=== PATIENT | male | born 1950 | race Caucasian/White ===

== ENCOUNTER 2019-04-12 18:36 | Inpatient (IN) | payer OTHER ==
[~2019-04-12] VITALS: Ht 165.1 cm; Wt 80.0 kg
[2019-04-12 18:39] VITALS: Ht 165.1 cm; Wt 80.0 kg
--- NOTE | 2019-04-12 19:01 | NUR ---
PT COMING FROM [facility] FOR [facility] THAT STARTED AT 1500 PT HAD A MECHANICAL FALL ON THE YARD AND THE MEDICAL TEAM WAS CALLED OUT TO SEE HIM. PER MEDICS THE STAFF REPORTING BP OF 74 SYSTOLIC AND 911 WAS ACTIVATED. PER MEDICS THEY STARTED 20G RIGHT AC AND GAVE PT 300ML BOLUS NS AND SYSTOLIC IS 110 AT TIME OF ARRIVAL. PT IS ALERT AND ORIENTED AND BREATHING IS UNLABORED AND EVEN. PT HAS NO COMPLAINT AT THIS TIME AND AWAITING MSE. 2 OFFICERS AT BEDSIDE AND PT IN POC, ON FULL CM AND AWITING MSE
--- NOTE | 2019-04-12 19:10 | NUR ---
DR HOANG AT BEDSIDE FOR MSE AND REPORT GIVEN TO LAURA TO CONTINUE PT CARE.
[2019-04-12 19:45] LABS: PLATELET COUNT 189 x10^3mcL (130-400)
[2019-04-12 19:47] LABS: microscopic required? YES; urine erythrocyte NEGATIVE (NEGATIVE)
[2019-04-12 19:56] LABS: CALCIUM 7.4 mg/dL (8.5-10.1); CARBON DIOXIDE 27.3 mmol/L (21-32); CHLORIDE SERUM 102 mmol/L (98-107); CREATININE SERUM 1.1 mg/dL (0.7-1.3); GFR1 > 60 mL/min; GLUCOSE SERUM 73 mg/dL (74-106); POTASSIUM SERUM 4.5 mmol/L (3.5-5.1); RED CELL DISTRIBUTION WIDTH 15.8 % (11.5-14.5); SODIUM SERUM 134 mmol/L (136-145)
--- NOTE | 2019-04-12 19:58 | NUR ---
PT RESTING IN A POSITION OF COMFORT, AOX4, RESP EVEN AND UNLABORED, NO ACUTE DISTRESS NOTED. PT REMIANS ON FULL CM.
[2019-04-12 20:01] LABS: ALBUMIN 2.3 g/dL (3.4-5.0); ALKALINE PHOSPHATASE 56 U/L (46-116); ALT/SGPT 22 U/L (16-63); AST/SGOT 15 U/L (15-37); BILIRUBIN TOTAL 0.6 mg/dL (0.20-1.00); TOTAL PROTEIN, SERUM 5.2 g/dL (6.4-8.2)
[2019-04-12 20:09] LABS: BAND NEUTROPHIL 9 % (0-10); BASOPHIL 0 % (0-2); MONOCYTE 1 % (0-7); SEGMENTED NEUTROPHILS 89 % (37-75)
[2019-04-12 20:11] LABS: PLATELET MORPHOLOGY PLATELETS NORMAL; rbc morphology (normal/abnorm) NORMAL (NORMAL)
[2019-04-12] MEDS ORDERED: CARVEDILOL6.25 M1 PO (20:25)
[2019-04-12] MEDS ORDERED: AMLODIPINE BESY10 M2 PO (20:25)
[2019-04-12] MEDS ORDERED: ATORVASTATIN CA40 M1 PO (20:25)
[2019-04-12] MEDS ORDERED: DEXAMETHASONE4 MG PO (20:26)
[2019-04-12] MEDS ORDERED: COLACE100 MG PO (20:26)
[2019-04-12] MEDS ORDERED: XOPENEX1.25 MG/3 (20:27)
[2019-04-12] MEDS ORDERED: LANTUS SOLOS100 U/M1 (20:27)
[2019-04-12] MEDS ORDERED: LISINOPRIL40 MG PO (20:27)
[2019-04-12] MEDS ORDERED: DULERA1 AR3 (20:28)
[2019-04-12] MEDS ORDERED: TAMSULOSIN HCL0.4 MG PO (20:28)
[2019-04-12] MEDS ORDERED: GOOD SENSE OMEP20 MG PO (20:28)
[2019-04-12] MEDS ORDERED: SPIRIVA18 MC1 INH (20:28)
--- NOTE | 2019-04-12 20:49 | NUR ---
PT REPORT CALLED TO NATY CHRISTIANSON TO ASSUME PT CARE.
--- NOTE | 2019-04-12 21:00 | NUR ---
RECEIVED PT FROM ED VIA ALIZA, CAME IN DUE TO FALL. AAOX4. DENIES HEADACHE/DIZZINESS. ABLE TO FOLLOW COMMANDS. SPEECH IS CLEAR. HAND MANAGER EQUITY EQUAL. NO FACIAL DROOP/ARM DRIFT. NO SOB NOTED, LUNG SOUNDS CTA. O2 SAT=98% ON RA. DENIES CHEST PAIN/PRESSURE, SR-ST ON THE MONITOR. DENIES ABDOMINAL DISCOMFORT. BOWEL SOUNDS ACTIVE. ABDOMEN IS SOFT. C/O BURNING SENSATION ON URINATION. W/ ECCHYMOSIS ON BUE AND ABDOMEN, LINEAR SCAB ON THE LOWER MID-ABDOMEN, AND SCABS BEHIND THE LEFT EAR. AMBULATORY W/ STEADY GAIT. ABLE TO MOVE ALL EXTREMITIES. MILD COLD SPRINGS. WEARS EYEGLASSES. IV SITE PATENT AND INTACT. RECEIVED PT FROM ED W/ VAIBHAV ONGOING. SIDE RAILS UPX2. CALL LIGHT ON REACH. PRIMARY NURSE NATY AT BEDSIDE FOR CONTINUITY OF CARE
[2019-04-12 21:32] VITALS: BP 124/62
--- NOTE | 2019-04-12 22:07 | NUR ---
FLU VACCINE ADMINISTERED TO LEFT DELTOID. TOLERATED WELL. WATCHING TV AT THIS TIME. HOB LLEVATED 30 DEG. CALL LIGHT WITHIN EASY REACH. CORRECTIONAL OFFICERS IN ROOM.
[2019-04-12 23:26] VITALS: BP 124/62
--- NOTE | 2019-04-12 23:41 | NUR ---
IV SITE TO RIGHT HAND FLUSHED WELL. STARTED ORDERED IVF OF NS AT 100ML/HR. NS BAG WILL NOT SCAN. STARTED ORDERED ANTIBIOTIC ZOSYN. PT DENIES HAVING ANY ALLERGY TO PENICILLIN.
--- NOTE | 2019-04-13 01:51 | NUR ---
EYES CLOSED, EASILY AWAKENED. BREATHING EVEN AND UNLABORED ON ROOM AIR. IVF INFUSING WELL. CALL LIGHT WITHIN EASY REACH. CORRECTIONAL OFFICERS IN ROOM
[2019-04-13 05:21] VITALS: BP 115/51
--- NOTE | 2019-04-13 05:36 | NUR ---
O2 SAT 85% ON ROOM AIR. PLACED NASAL CANNULA 3LPM OF O2, O2 SAT 95%
--- NOTE | 2019-04-13 06:32 | NUR ---
AWAKE AND ALERT, ON 3LPM OF O2 VIA NC. BREATHING EVEN AND UNLABORED. IVF OF NS INFUSING WELL TO RIGHT HAND AT 100ML/HR. CALL LIGHT WITHIN EASY REACH. CORRECTIONAL OFFICERS IN ROOM.
[2019-04-13 07:02] LABS: CARBON DIOXIDE 28.1 mmol/L (21-32); CHLORIDE SERUM 106 mmol/L (98-107); CREATININE SERUM 1.1 mg/dL (0.7-1.3); GFR1 > 60 mL/min; GLUCOSE SERUM 92 mg/dL (74-106); POTASSIUM SERUM 4.5 mmol/L (3.5-5.1); SODIUM SERUM 139 mmol/L (136-145)
[2019-04-13 07:03] LABS: PLATELET COUNT 168 x10^3mcL (130-400)
--- NOTE | 2019-04-13 07:12 | NUR ---
EYES CLOSED, BREATHING UNLABORED ON 3LPM OF O2 VIA NC. CALL LIGHT WITHIN EASY REACH. IV SITE FREE FROM ERYTHEMA OR SWELLING. IVF INFUSING WELL. ENDORSED TO NURSE BELEM
--- NOTE | 2019-04-13 07:52 | NUR ---
NO SOB OR DISTRESS NOTED. BREATH SOUNDS ARE CLEAR TO DIM BILATERALLY. NO MED NEB NEEDED AT THIS TIME.
[2019-04-13 08:33] VITALS: BP 95/45
--- NOTE | 2019-04-13 09:45 | NUR ---
AM DUE MEDICATIONS GIVEN. PATIENT TOLERATED WELL.
[2019-04-13 12:07] LABS: BAND NEUTROPHIL 8 % (0-10); BASOPHIL 0 % (0-2)
[2019-04-13 12:08] LABS: MONOCYTE 1 % (0-7); SEGMENTED NEUTROPHILS 90 % (37-75)
[2019-04-13 12:09] LABS: PLATELET MORPHOLOGY PLATELETS NORMAL; rbc morphology (normal/abnorm) ABNORMAL (NORMAL)
[2019-04-13 12:53] VITALS: BP 109/56
[2019-04-13 16:32] VITALS: BP 109/58
--- NOTE | 2019-04-13 18:42 | NUR ---
PATIENT REPORTS MILD HEADACHE REQUESTING FOR TYLENOL, GIVEN. ALSO INQUIRING ABOUT BREATHING TREATMENT, INFORMED HIM NEXT TIME TO ADMINISTER BY RT IS AT 2100, DENIES FEELING RESP DISCOMFORT AND OKAY TO WAIT FOR NEXT DOSE TIME. ALSO REQUESTING FOR ARTIFICIAL TEARS FOR DRY EYES. DR DENNY CALLED AND MADE AWARE, TELEPHONE ORDER RECEIVED AND PLACED. NO OTHER CONCERNS AT THIS TIME. NO SIGNFICANT CHANGE IN CONDITION. CALL LIGHT WITHIN REACH. 2 OFFICERS AT BEDSIDE. WILL CONT TO MONITOR AND ENDORSE TO NOC NURSE.
--- NOTE | 2019-04-13 19:57 | NUR ---
PT RECEIVED FROM DAY NURSE. PT RESTING IN BED AT THIS TIME. A/O X4, CALM AND COOPERATIVE AT THIS TIME. TELE 9, SR. DENIES CP, NV, DIZZINESS, AND PALPATATIONS. PALPABLE PULSES, NO EDEMA NOTED AT THIS TIME. BREATHING E/U ON 1L NC AT THIS TIME. DENIES SOB. ABD SOFT AND ROUND, DENIES PAIN TO PALPATION. AMBULATORY AT BASELINE. HEALING SURGICAL SITE NOTED BEHIND L EAR. MISCELLANEOUS MACHINE OPERATOR. ECCYMOSIS NOTED BUE/ABD. RH IV, CDI AND INFUSING. BED AT LOWEST POSITION. CALL LIGHT WITHIN REACH. WILL CONTINUE TO MONITOR.
[2019-04-13 20:33] VITALS: BP 111/59
[2019-04-13 20:53] VITALS: BP 116/71
--- NOTE | 2019-04-14 00:14 | NUR ---
PT RESTING IN BED AT THIS TIME. NO S/S OF PAIN OR DISCOMFORT NOTED AT THIS TIME. BREATHING E/U ON 1L NC. NO SIGNS OF ACUTE DISTRESS AT THIS TIME. WILL CONTINUE TO MONITOR.
[2019-04-14 05:23] VITALS: BP 144/71
[2019-04-14 06:35] LABS: CALCIUM 7.8 mg/dL (8.5-10.1); CARBON DIOXIDE 27.8 mmol/L (21-32); CHLORIDE SERUM 109 mmol/L (98-107); CREATININE SERUM 0.8 mg/dL (0.7-1.3); GFR1 > 60 mL/min; GLUCOSE SERUM 132 mg/dL (74-106); POTASSIUM SERUM 4.7 mmol/L (3.5-5.1); SODIUM SERUM 142 mmol/L (136-145)
[2019-04-14 06:38] LABS: PLATELET COUNT 134 x10^3mcL (130-400)
--- NOTE | 2019-04-14 06:45 | NUR ---
PT RESTING IN BED AT THIS TIME. DENIES PAIN AND DISCOMFORT. BREATHING E/U ON 1L NC. NO SIGNS OF ACUTE DISTRESS NOTED. IV TO RH CDI. WILL ENDORSE TO DAY NURSE.
[2019-04-14 07:04] LABS: BASOPHIL % 0 % (0-2); RED CELL DISTRIBUTION WIDTH 15.8 % (11.5-14.5)
--- NOTE | 2019-04-14 07:29 | NUR ---
REPORT RECEIVED FROM CRANIOLOGIST RN. NO SIGNS OF DISTRESS NOTED. WILL CONTINUE TO MONITOR. CALL LIGHT WITHIN REACH.
[2019-04-14 08:22] VITALS: BP 128/69
--- NOTE | 2019-04-14 08:47 | NUR ---
Offered to put SCDs on patient's legs. Patient refused.
--- NOTE | 2019-04-14 11:16 | NUR ---
FAMILY MEDICINE TEAM MADE ROUNDS TO SEE PATIENT. CONTINUE TO MONITOR. PATIENT INFORMED.
[2019-04-14 12:08] VITALS: BP 125/61
--- NOTE | 2019-04-14 13:51 | NUR ---
PATIENT RESTING IN BED. NO SIGNS OF DISTRESS NOTED. TWO DEPUTIES PRESENT AND ON STANDBY. PATIENT HAS NOT C/O PAIN. WILL CONTINUE TO MONITOR. CALL LIGHT WITHIN REACH.
--- NOTE | 2019-04-14 14:51 | NUR ---
REMOVED RIGHT WRIST 22G IV DUE TO INFILTRATION. STARTED NEW IV 22G ON LEFT POSTERIOR FOREARM. NO SIGNS/SYMPTOMS OF INFILTRATION NOTED.
--- NOTE | 2019-04-14 15:01 | NUR ---
PATIENT C/O DRY EYES. DR. EDUIN FLOWERS AND JOSE ANTONIO FABIAN ORDER FOR ARTIFICIAL TEARS FOR BOTH EYES THREE TIMES PER DAY ORDERED. PATIENT MADE AWARE.
[2019-04-14 16:57] VITALS: BP 139/60
--- NOTE | 2019-04-14 18:19 | NUR ---
PATIENT RESTING IN BED AND EATING DINNER. BED LINEN CHANGED WITH FOOTWEAR FACTORY WORKER. PATIENT HAD NO SIGNS OF DISTRESS. LEFT FOOT SHACKLED TO BED. WILL ENDORSE TO SUPERVISOR [employer] RN. CALL LIGHT WITHIN REACH.
--- NOTE | 2019-04-14 20:00 | NUR ---
SHIFT REASSESSMENT DONE.PATIENT ALERT AND ORIENTED.CIM,2 SECURITY OFFICERS AT BEDSIDE FOR SAFETY.O2 AT 1 LITER N/C.NS AT 100 CC/ HOUR R WRIST /HAND.ON ATB SCHEDULE.TELE 9 SR.WANTING HIS EYEDROPS/ARTIFICIAL TEARS.WILL GIVE.WILTON PER REPORT.NEEDS ANTICIPATED.URINAL AT BEDSIDE,VOIDING WELL.EMPTY NEEDED.CALL LIGHT IN REACH.
[2019-04-14 20:27] VITALS: BP 118/70
--- NOTE | 2019-04-14 21:35 | NUR ---
ALL PM MEDS GIVEN.SWALLOWS WELL.EYEDROPS GIVEN BOTH EYES DRYNESS.IVF NS AT 100 CC/HOUR.
--- NOTE | 2019-04-15 01:15 | NUR ---
PATIENT ATB KULWINDER GOT MANUALLY DC AFTER [address] DENNY.NW ATB ORDERED FORTAZ.THROAT CULTURE RESULT MODERATE YEAST.WILL CHECK WITH PHARMACY IF MED AVAILABLE.
--- NOTE | 2019-04-15 03:00 | NUR ---
CORRECTION:DR THEODORE ORDERED FORTAZ AND DECADRON PO.
[2019-04-15 05:05] VITALS: BP 147/78
--- NOTE | 2019-04-15 06:07 | NUR ---
I AND O MEASURED.ATB GIVEN.AM MED GIVEN,SWALLOWS WELL.WILL ENDORSE TO NEXT SHIFT.
[2019-04-15 06:37] LABS: PLATELET COUNT 139 x10^3mcL (130-400)
[2019-04-15 06:43] LABS: CALCIUM 7.9 mg/dL (8.5-10.1); CHLORIDE SERUM 107 mmol/L (98-107); CREATININE SERUM 0.8 mg/dL (0.7-1.3); GFR1 > 60 mL/min; GLUCOSE SERUM 99 mg/dL (74-106); POTASSIUM SERUM 4.5 mmol/L (3.5-5.1); SODIUM SERUM 140 mmol/L (136-145)
[2019-04-15 07:00] LABS: BASOPHIL % 0 % (0-2); RED CELL DISTRIBUTION WIDTH 15.4 % (11.5-14.5)
--- NOTE | 2019-04-15 07:05 | NUR ---
SEEN IN BED AAOX3. DENIES HEADACHE OR DIZZINESS. STATED JUST HAVING SORE THROAT. DENIES WEAKNESS. ON REGULAR DIET. IVF NS TO LFA INFUSING AT 100ML/HR. CALL LIGHT PLACED WITHIN EASY REACH. SIDERAILS UP X2. CORRECTIONAL GUARDS AT BEDSIDE.
[2019-04-15 08:44] VITALS: BP 150/65
[2019-04-15 09:49] VITALS: BP 152/65
[2019-04-15 13:09] VITALS: BP 144/68
[2019-04-15 17:01] VITALS: BP 143/51
--- NOTE | 2019-04-15 17:40 | NUR ---
NO ANY DISTRESS THROUGHOUT SHIFT. VSS. DENIES CHEST PAIN. TYLENOL PO GIVEN X1 FOR HEADACHE. CEPACOL GIVEN X2 FOR SORE THROAT. ALL DUE MEDS GIVEN. TOLERATED TO REGULAR DIET WELL. IVF NS TO LFA INFUSING WELL.
[2019-04-15 19:20] VITALS: BP 130/62
--- NOTE | 2019-04-15 19:30 | NUR ---
PT RECIEVED FROM DAY NURSE. PT RESTING IN BED AT THIS, DENIES PAIN OR DISCOMFORT. A/O X4, CALM AND COOPERATIVE. TELE 9, NSR. DENIES CP, NV, DIZZINESS, OR PALPATATIONS. PALPABLE PULSES, NO EDEMA NOTED AT THIS TIME. BREATHING E/U ON RA. DENIES SOB. ABD SOFT AND ROUND, DENIES PAIN TO PALPATION. GENERALIZED WEAKNESS, AMBULATORY AT BASELINE. HEALED SURGICAL SITE NOTED BEHIND L EAR. ECCYMOSSIS NOTED TO ABD ABD BUE. LFA IV INTACT AND INFUSING. BED AT LOWEST POSITION. CALL LIGHT WITHIN REACH. WILL CONTINUE TO MONITOR.
--- NOTE | 2019-04-16 | NUR ---
PT RESTING IN BED AT THIS TIME. NO S/S OF PAIN OR DISCOMFORT. BREATHING E/U ON RA. NO SIGNS OF ACUTE DISTRESS AT THIS TIME. WILL CONTINUE TO MONITOR.
[2019-04-16 03:58] VITALS: BP 184/92
--- NOTE | 2019-04-16 06:00 | NUR ---
PT BP 184/92, MEDICATED WITH AM NORVASC. WILL ENDORSE TO DAY NURSE. PT RESTING IN BED COMFORTABLY. DENIES PAIN OR DISCOMFORT AT THIS TIME. BREATHING E/U ON RA. NO SIGNS OF ACUTE DISTRESS NOTED THIS SHIFT. ALL NEEDS AND CONCERNS ADDRESSED. BED AT LOWEST POSITION. CALL LIGHT WITHIN REACH. WILL ENDORSE TO DAY NURSE.
[2019-04-16 06:44] VITALS: BP 154/67
[2019-04-16 06:51] LABS: PLATELET COUNT 154 x10^3mcL (130-400)
[2019-04-16 06:54] LABS: BASOPHIL % 0 % (0-2); RED CELL DISTRIBUTION WIDTH 16.1 % (11.5-14.5)
[2019-04-16 07:01] LABS: CALCIUM 8.3 mg/dL (8.5-10.1); CARBON DIOXIDE 28.8 mmol/L (21-32); CHLORIDE SERUM 106 mmol/L (98-107); CREATININE SERUM 0.8 mg/dL (0.7-1.3); GFR1 > 60 mL/min; GLUCOSE SERUM 148 mg/dL (74-106); POTASSIUM SERUM 5.1 mmol/L (3.5-5.1); SODIUM SERUM 141 mmol/L (136-145)
[2019-04-16 07:22] VITALS: BP 124/76
--- NOTE | 2019-04-16 07:25 | NUR ---
SEEN SITTING UP IN BED HAVING BREAKFAST. DENIES PAIN STATED JUST SORE THROAT. BREATHING E/U ON ROOM AIR. ON TELE#9 NSR. LUNG SOUND CTA. VOIDS, USES URINAL AT BEDSIDE. IVF NS TO LFA INFUSING WELL. CALL LIGHT PLACED WITHIN EASY REACH. SIDERAILS UP X2. CORRECTIONAL GUARDS AT BEDSIDE.
--- NOTE | 2019-04-16 09:02 | NUR ---
OFF FLOOR VIA WHEELCHAIR FOR CT SCAN. S/L TO LFA FLUSHED PATENT.
--- NOTE | 2019-04-16 09:17 | NUR ---
BACK FROM CT SCAN. NO ANY DISTRESS NOTED.
[2019-04-16 12:02] VITALS: BP 143/67
[2019-04-16 16:25] VITALS: BP 158/72
--- NOTE | 2019-04-16 16:30 | NUR ---
RECEIVED PT FROM SAMMY WOODS. PT LYING IN BED, A/A. BREATHING EQUAL/ UNLABORED ON RA. NO ACUTE DISTRESS/ PAIN NOTED. IVF RUNNING AT 100 ML/HR. NO REDNESS/SWELLING TO IV SITE. BED IN LOW POSITION, CALL LIGHT IN REACH, OFFICERS AT BED SIDE, WILL CONTINUE TO MONITOR
--- NOTE | 2019-04-16 18:37 | NUR ---
PT SITTING UP IN BED, A/A. BREATHING EQUAL/ UNLABORED ON RA. NO ACUTE DISTRESS/ PAIN AT THIS TIME. IVF RUNNING AT 100ML/HR. NO REDNESS/ SWELLING TO IV SITE. BED IN LOW POSITION, CALL LIGHT IN REACH, OFFICERS AT BED SIDE. WILL ENDORSE TO ON COMING NURSE
[2019-04-16 19:19] VITALS: BP 140/69
--- NOTE | 2019-04-16 19:25 | NUR ---
CARE ASSUMED FROM OUTGOING RN. PT RESTING COMFORTABLY IN BED. CORRETIONAL OFFICERS AT BEDSIDE. NO ACUTE DISTRESS NOTED. EVEN AND UNLABORED RESPIRATIONS ON RA. ON TELE# 9 READING SR 81 WITH PAC'S. IV PATENT AND INTACT RUNNING FLUIDS PER EMAR. C/O HEADACHE RESOLVED AFTER MEDS GIVEN PER EMAR. C/O DRY EYES WILL MEDICATE WITH EYE DROPS PER EMAR. BED IN LOWEST POSITION. SIDE RAILS UPX2. CALL LIGHT WITHIN REACH. WILL CONTINUE TO MONITOR.
--- NOTE | 2019-04-16 23:55 | NUR ---
DR. FERRIS ORDERS: D/C CURRENT ANTIBIOTICS NYSTATIN AND FORTAZ. ORDERED ROCEPHIN 1GM DAILY. PT IN NO ACUTE DISTRESS. WILL CONTINUE TO MONITOR.
--- NOTE | 2019-04-17 00:29 | NUR ---
PT ASLEEP COMFORTABLY IN BED. CORRECTIONAL OFFICERS AT BEDSIDE. NO ACUTE DISTRESS NOTED. EVEN AND UNLABORED RESPIRATIONS ON RA. ON TELE# 9 READING SR 64. IV PATENT AND INTACT RUNNING FLUIDS PER EMAR. BED IN LOWEST POSITION. SIDE RAILS UPX2. CALL LIGHT WITHIN REACH. WILL CONTINUE TO MONITOR.
[2019-04-17 04:15] VITALS: BP 159/72
[2019-04-17 06:09] LABS: PLATELET COUNT 168 x10^3mcL (130-400)
[2019-04-17 06:11] LABS: CALCIUM 8.5 mg/dL (8.5-10.1); CHLORIDE SERUM 106 mmol/L (98-107); CREATININE SERUM 0.8 mg/dL (0.7-1.3); GFR1 > 60 mL/min; GLUCOSE SERUM 142 mg/dL (74-106); POTASSIUM SERUM 5.2 mmol/L (3.5-5.1); SODIUM SERUM 141 mmol/L (136-145)
--- NOTE | 2019-04-17 06:41 | NUR ---
PT SLEPT COMFORTABLY IN INTERVALS THROUGHOUT THE SHIFT. ALL NEEDS TENDED TO AND MET. ALL SCHEDULED MEDICATIONS GIVEN. C/O DRY EYES MEDICATED PER EMAR. BLOOD SUGARS CHECKED AND COVERED PER SLIDING SCALE. ON TELE# 9 READING SR 61 WITH OCC PAC'S. IV PATENT AND INTACT RUNNING FLUIDS PER EMAR. CORRECTIONAL OFFICERS AT BEDSIDE. BED IN LOWEST POSITION. SIDE RAILS UXP2. CALL LIGHT WITHIN REACH. WILL ENDORSE TO ONCOMING SHIFT.
[2019-04-17 06:55] LABS: BASOPHIL % 0 % (0-2); RED CELL DISTRIBUTION WIDTH 15.6 % (11.5-14.5)
--- NOTE | 2019-04-17 07:10 | NUR ---
RECEIVED REPORT FROM ANNIE RN AT BEDSIDE, PT IN BED IN NO ACUTE DISTRESS
--- NOTE | 2019-04-17 07:30 | NUR ---
PT IN BED, IN NO ACUTE DISTRESS, AXOX4, VERBAL, ABLE TO MAKE NEEDS KNOWN, GUARDS AT BEDSIDE, CALM AND COOPERATIVE AT THIS TIME, PERRLA, [place], NO REDNESS/DRAINAGE, NO FACIAL DROOP/SLURRED SPEECH, RESP EVEN, RA, NO SOB/COUGH, CHEST RISE SYMMETRICALLY, TELE #7, NSR W/ PAC'S, DENIED CP/PALPITATION/JOVEL, DENIED N/V/D, ABD ROUND AND NONTENDER TO TOUCH, BS ACTIVE X 4, PALP PULSES, CAP REFILL < 3S, CONTINENT, AMBULATORY, IV PATENT AND INFUSING WELL, DRESSING CDI, SEE SKIN ASSESSMENT, SKIN C/D/W, CUFF TO (L) ANKLE, ALL NEEDS ADDRESSED AT THIS TIME, SAFETY PROTOCOL MAINTAINED, CONTINUE TO MONITOR
[2019-04-17 08:35] VITALS: BP 157/75
--- NOTE | 2019-04-17 09:02 | NUR ---
AM MEDS GIVEN PER MD ORDRE VIA EMAR, TOLERATED WELL, NO ASE NOTED AT THIS TIME, EDUCATION R/T MED, ASE AND MONITOR GIVEN TO PT, VERBALLY UNDERSTANDING, ALL NEEDS ADDRESSED AT THIS TIME, CONTINUE TO MONITOR
[2019-04-17 09:57] VITALS: BP 157/75
--- NOTE | 2019-04-17 11:32 | NUR ---
DC PAPER SIGNED BY PT, DC PACKAGE GIVE TO GUARD, IV REMOVED, IV REMOVED, IV TIP INTACT, NO ACTIVE BLEEDING NOTED, EDUCATION R/T MED, CONDITION, ASE AND MONITOR GIVEN TO PT, VERBALLY UNDERSTANDING, QUESTIONS ASKED AND ANSWERED, NO FURTHER CONCERN NEEDED WHEN ASKED, JANA SAID WILL CALL FOR TRANSPORTATION AND GET PT OUT AROUND 1300, CHARGE NURSE SCARLETT MADE AWARE, PT IN NO ACUTE DISTRESS
--- NOTE | 2019-04-17 12:16 | NUR ---
TELE #9 REMOVED AND RETURNED TO [facility], PT HAD LUNCH, TOLEARTED WELL, GUARDS AT BEDSIDE, AWAITING FOR ARRANGED TRANSPORTATION
--- NOTE | 2019-04-17 12:43 | NUR ---
1. Recommend continuing [facility] diet.
--- NOTE | 2019-04-17 12:43 | NUR ---
Initial Nutrition Assessment: 232T/B SAMMIE MORA MR Dx: UTI PMHx: OA, HTN, brain CA PSHx: none Labs: K 5.2H. BG 142H, BUN 22H, A1C 6.7H, WBC 12.9H Meds: Ativan, Colace, D 50%, Humulin, lantus, Lipitor, morphine, phenegran Diet: CCHO PO intake since admission: (04/16) lunch, breakfast 100%, (04/08) 100% all meals Ht: 165.1 cm (65") Wt: 80 kg (176#) BMI: 29.3 kg/m2 Bed scale: 80.4 kg IBW: 136# (62 kg) %IBW: 126 UBW: 183# Age: 68/M Food Allergies: NKFA Skin: ecchymosis, arm, Víctor: 21 Edema: none GI: Last BM: 04/17 Per H&P, Pt is a 68 YO male h/o brain CA post resection 03/26, had a escobedo cath. also h/o DM HTN [facility], [facility] resident. RD Note (04/17): Patient was alert and oriented and said that he ate 100% breakfast this morning. Patient said that his blood sugar is high because he is taking steroids. He never has diabetes. Patient also mentioned about his brain surgery. Problem with: N/V/D/C: none Problems with: Chewing: Swallowing: none Current appetite: good Recent wt change: lost ~ 7# x 1 month %wt change: 3.8 Vitamin/Supplement use: fish oil Special diet at home: Regular Physical activity: none Nutrition education given: DM diet education was provided using [facility] handout on 'Type 2 Diabetes Nutrition Therapy'. Concepts like high fiber foods and portion control were discussed. Patient verbalized understanding and did not have any questions at this time. Food-drug interactions: Colace: high fiber w/ 0736-4877 ml fluid/day Education given: n/a Estimated Nutritional Needs Based on adjusted body weight (66 kg) Energy: 1487-6009 kcal/day (25-30 kcal/kg for maintenance) Protein: 66-79 g/day (1.0-1.2 g/kg preserve LBM) Fluid: 0551-7086 mL/day (1 mL/kcal) Nutrition Diagnosis: 1. Altered nutrition related lab values related to medical condition/ medications as evidenced by A1C: 6.7H, WBC 12.9H Intervention 1. Recommend continuing CCHO diet. Monitor/Evaluate Goal: PO intake at least 75% of estimated needs Monitor: PO intake, Labs, GI function F/U in 7 days as low risk
== END 2019-04-17 13:00 | disposition other institution (70) | DRG 871 ==
LOC: ED 18:36 → DU 20:25
PROVIDERS: Emergency Medicine; ADMIT Internal Medicine
DX: A41.59 Other Gram-negative sepsis (principal); J18.9 Pneumonia, unspecified organism; G93.41 Metabolic encephalopathy; E43 Unspecified severe protein-calorie malnutrition; N39.0 Urinary tract infection, site not specified; N17.9 Acute kidney failure, unspecified; R65.20 Severe sepsis without septic shock; E86.0 Dehydration; E11.65 Type 2 diabetes mellitus with hyperglycemia; E11.22 Type 2 diabetes mellitus with diabetic chronic kidney disease; I12.9 Hypertensive chronic kidney disease with stage 1 through stage 4 chronic kidney disease, or unspecified chronic kidney disease; N18.9 Chronic kidney disease, unspecified; N40.0 Benign prostatic hyperplasia without lower urinary tract symptoms; B96.1 Klebsiella pneumoniae [K. pneumoniae] as the cause of diseases classified elsewhere; J44.9 Chronic obstructive pulmonary disease, unspecified; D64.9 Anemia, unspecified; B18.2 Chronic viral hepatitis C; M19.90 Unspecified osteoarthritis, unspecified site; G47.33 Obstructive sleep apnea (adult) (pediatric); Z68.29 Body mass index [BMI] 29.0-29.9, adult; Z86.011 Personal history of benign neoplasm of the brain; Z79.84 Long term (current) use of oral hypoglycemic drugs; Z23 Encounter for immunization; Z90.89 Acquired absence of other organs
CPT/HCPCS: 82962; 83880; 87804; 90658; 94150; 97116-GP; G0378; J0696; J0713; J1815; J2543; J7030; J7060; J8540; Q0092